=== PATIENT | female | born 1955 | race Caucasian/White ===

== ENCOUNTER 2023-11-11 06:12 | Inpatient (IN) | payer MEDICARE ==
[~2023-11-11] VITALS: Ht 170.2 cm; Wt 69.9 kg
[2023-11-11 07:04] LABS: EOSINOPHILS # (AUTO) 0.6 K/uL (0.0-0.7); EOSINOPHILS % (AUTO) 8.2 % (0.0-6.0); HEMATOCRIT 43 % (33-45); LYMPHOCYTES # (AUTO) 0.6 K/uL (0.8-4.8); LYMPHOCYTES % (AUTO) 8.2 % (20.0-44.0); MEAN CORPUSCULAR HEMOGLOBIN 27 PG (26.0-33.0); MEAN CORPUSCULAR HGB CONC 32 g/dl (31.0-36.0); MEAN CORPUSCULAR VOLUME 84 fL (82-100); MONOCYTES # (AUTO) 0.1 K/uL (0.1-1.30); MONOCYTES % (AUTO) 1.1 % (2.0-12.0); NEUTROPHILS # (AUTO) 6.3 K/uL (1.8-8.9); NEUTROPHILS % (AUTO) 82.5 % (43.0-81.0); PLATELET COUNT (AUTO) 199 K/uL (150-450); WHITE BLOOD COUNT (AUTO) 7.6 K/uL (4.3-11.0)
[2023-11-11] MEDS ORDERED: LIDOCAINE 2%-EPI 1:200,000 20 ML VIAL IJ ONE (07:10)
[2023-11-11] MEDS ORDERED: VANCOMYCIN 1 GM VIAL ONE (07:10)
[2023-11-11] MEDS ORDERED: dexaMETHasone SOD PHOSPHATE 4 MG/ML VIAL ONE (07:10)
[2023-11-11 07:11] LABS: INR 1.01 (0.91-1.10); PARTIAL THROMBOPLASTIN TIME 27.6 SEC (24.3-34.3); PROTHROMBIN TIME 10.7 SECS (9.2-11.1)
[2023-11-11] MEDS ORDERED: dexaMETHasone SOD PHOSPHATE 1 ML ONE (07:12)
[2023-11-11] MEDS ORDERED: OXYMETAZOLINE HCL NASAL SPRAY 30 ML BOTTLE NS ONE (07:46)
[2023-11-11] MEDS ORDERED: ROCURONIUM BROMIDE 50 MG/5 ML ONE (08:01)
[2023-11-11] MEDS ORDERED: KETAMINE HCL (500MG/10ML) 50 MG/ML VIAL ONE (08:01)
[2023-11-11] MEDS ORDERED: FENTANYL PF 100MCG/2ML AMPUL ONE (08:01)
[2023-11-11] MEDS ORDERED: MIDAZOLAM HCL 2 MG/2ML VIAL ONE (08:01)
[2023-11-11] MEDS ORDERED: FAMOTIDINE/PF INJ 20 MG/2 ML VIAL IV ONE (08:01)
[2023-11-11] MEDS: HYDROMORPHONE 1 MG/1 ML DISP.SYRIN IV PRN (12:23)
[2023-11-11] MEDS: IV NS 0.9% 1,000 ML IV PRN (12:30)
[2023-11-11] MEDS ORDERED: ONDANSETRON HCL/PF 4 MG/2 ML VIAL IVP PRN (12:30)
[2023-11-11] MEDS ORDERED: ACETAMINOPHEN 325 MG TABLET PO PRN ×2 (12:30→14:30)
[2023-11-11] MEDS ORDERED: Z GUARD REMEDY 4 OZ OINT TP PRN (14:30)
[2023-11-11 16:00] VITALS: BP 125/84; TEMP 97.3; O2SAT 98
[2023-11-11] MEDS: MENTHOL/CETYLPYRD (CEPACOL) 1 LOZ LOZENGE PO PRN (16:00)
[2023-11-11 20:00] VITALS: BP 106/78; TEMP 97.5; O2SAT 96
[2023-11-11] MEDS: VANCOMYCIN 1 GM in IV D5W 250ml IV SCH (20:01)
[2023-11-11] MEDS: EZETIMIBE 10 MG TABLET PO SCH (21:02)
[2023-11-12 07:35] LABS: BASOPHILS % (AUTO) 0.4 % (0.0-2.0); EOSINOPHILS % (AUTO) 0.3 % (0.0-6.0); HEMATOCRIT 37 % (33-45); HEMOGLOBIN 12.2 g/dL (11.5-14.8); LYMPHOCYTES # (AUTO) 2.5 K/uL (0.8-4.8); MEAN CORPUSCULAR HEMOGLOBIN 28 PG (26.0-33.0); MEAN CORPUSCULAR HGB CONC 33 g/dl (31.0-36.0); MEAN CORPUSCULAR VOLUME 83 fL (82-100); MONOCYTES # (AUTO) 1.2 K/uL (0.1-1.30); MONOCYTES % (AUTO) 10.5 % (2.0-12.0); NEUTROPHILS # (AUTO) 7.5 K/uL (1.8-8.9); NEUTROPHILS % (AUTO) 66.8 % (43.0-81.0); PLATELET COUNT (AUTO) 179 K/uL (150-450); RED BLOOD CELL COUNT(AUTO) 4.41 MIL/uL (4.0-5.2); RED CELL DISTRIBUTION WIDTH 13.4 % (11.5-15.0); WHITE BLOOD COUNT (AUTO) 11.3 K/uL (4.3-11.0)
[2023-11-12 07:56] LABS: CALCIUM, SERUM 8.8 mg/dL (8.5-10.1); CREATININE 0.5 mg/dL (0.6-1.3); MAGNESIUM 1.9 mg/dL (1.8-2.4); PHOSPHORUS 3.1 mg/dL (2.5-4.9); POTASSIUM 3.6 mmol/L (3.5-5.1)
[2023-11-12 08:00] VITALS: BP 91/76; TEMP 98.1; O2SAT 96
[2023-11-12 09:00] VITALS: BP 91/76
[2023-11-12] MEDS: VALSARTAN 80 MG TABLET PO SCH (09:00)
[2023-11-12] MEDS ORDERED: LIDO20SO13 PO (10:19)
[2023-11-12] MEDS: LIDOCAINE VISCOUS 2% UD 15 ML UDC MM ONE (10:47)
== END 2023-11-12 16:16 | disposition home or self-care (01) | DRG 517 ==
LOC: DS 06:12 → MED 11:40
PROVIDERS: ADMIT Nurse Practitioner Family; ATTEND Nurse Practitioner Family
PROC: 0NBT0ZX Excision of Right Mandible, Open Approach, Diagnostic (ICD-10-PCS; principal; 2023-11-11)
PROC: 0NBV0ZZ Excision of Left Mandible, Open Approach (ICD-10-PCS; 2023-11-11)
PROC: 0NSR04Z Reposition Maxilla with Internal Fixation Device, Open Approach (ICD-10-PCS; 2023-11-11)
PROC: 0NUT07Z Supplement Right Mandible with Autologous Tissue Substitute, Open Approach (ICD-10-PCS; 2023-11-11)
PROC: 0NUV07Z Supplement Left Mandible with Autologous Tissue Substitute, Open Approach (ICD-10-PCS; 2023-11-11)
PROC: 0NUR07Z Supplement Maxilla with Autologous Tissue Substitute, Open Approach (ICD-10-PCS; 2023-11-11)
PROC: 0NST04Z Reposition Right Mandible with Internal Fixation Device, Open Approach (ICD-10-PCS; 2023-11-11)
PROC: 0WB30ZX Excision of Oral Cavity and Throat, Open Approach, Diagnostic (ICD-10-PCS; 2023-11-11)
PROC: 0NSV0ZZ Reposition Left Mandible, Open Approach (ICD-10-PCS; 2023-11-11)
PROC: 0WC50ZZ Extirpation of Matter from Lower Jaw, Open Approach (ICD-10-PCS; 2023-11-11)
PROC: 0NBR0ZX Excision of Maxilla, Open Approach, Diagnostic (ICD-10-PCS; 2023-11-11)
DX: S02.40CK Maxillary fracture, right side, subsequent encounter for fracture with nonunion (principal); J32.0 Chronic maxillary sinusitis; S02.40DK Maxillary fracture, left side, subsequent encounter for fracture with nonunion; S02.609K Fracture of mandible, unspecified, subsequent encounter for fracture with nonunion; M27.2 Inflammatory conditions of jaws; M27.40 Unspecified cyst of jaw; E78.5 Hyperlipidemia, unspecified; I10 Essential (primary) hypertension; R04.0 Epistaxis; X58.XXXA Exposure to other specified factors, initial encounter; Y92.9 Unspecified place or not applicable
CPT/HCPCS: 36415; 71045-TC; 80048-TC; 83735-TC; 84100-TC; 85025-TC; 85610-TC; 85730-TC; 88305-TC; 88311-TC; A4223; C1713; G0378; J1100; J1170; J2250; J2405; J2704; J2765; J3010; J3370; J3490; J7030; J7060

== ENCOUNTER 2024-03-05 06:26 | Inpatient (IN) | payer MEDICARE, OTHER ==
[~2024-03-05] VITALS: Ht 160 cm; Wt 66.2 kg
[~2024-03-05 06:26] MED LIST: LIDO20SO13 PO
[2024-03-05] MEDS ORDERED: LIDOCAINE 1%-EPI 1:100,000 20 ML VIAL ONE (06:40)
[2024-03-05] MEDS ORDERED: dexaMETHasone SOD PHOSPHATE 2 ML ONE (06:41)
[2024-03-05] MEDS ORDERED: VANCOMYCIN 1 GM VIAL ONE (06:48)
[2024-03-05] MEDS ORDERED: LIDOCAINE 2%-EPI 1:100,000 30 ML VIAL ONE (06:48)
[2024-03-05] MEDS ORDERED: OXYMETAZOLINE HCL NASAL SPRAY 30 ML BOTTLE NS ONE (07:16)
[2024-03-05] MEDS ORDERED: FENTANYL PF 100MCG/2ML AMPUL ONE (07:22)
[2024-03-05] MEDS ORDERED: Magnesium 1 GM/2 ML VIAL ONE (07:23)
[2024-03-05] MEDS ORDERED: FAMOTIDINE/PF INJ 20 MG/2 ML VIAL IV ONE (07:23)
[2024-03-05] MEDS ORDERED: ROCURONIUM BROMIDE 50 MG/5 ML ONE (07:23)
[2024-03-05] MEDS ORDERED: ONDANSETRON HCL/PF 4 MG/2 ML VIAL IVP PRN (10:30)
[2024-03-05] MEDS: IV NS 0.9% 1,000 ML IV PRN (12:58)
[2024-03-05] MEDS: HYDROMORPHONE 1 MG/1 ML DISP.SYRIN IV PRN (13:14)
[2024-03-05] MEDS: VANCOMYCIN 1 GM in IV D5W 250ml IV SCH (20:01)
[2024-03-05 21:00] VITALS: BP 104/70; TEMP 94.9; O2SAT 96
[2024-03-05] MEDS: ACETAMINOPHEN 325 MG TABLET PO PRN (22:57)
[2024-03-06 08:00] VITALS: BP 108/82; TEMP 98.2; O2SAT 98
== END 2024-03-06 12:00 | disposition home or self-care (01) | DRG 908 ==
LOC: DS 06:26 → MED 10:01
PROVIDERS: ADMIT Nurse Practitioner Acute Care; ATTEND Nurse Practitioner Acute Care
PROC: 0NPW04Z Removal of Internal Fixation Device from Facial Bone, Open Approach (ICD-10-PCS; principal; 2024-03-05)
PROC: 0NPW07Z Removal of Autologous Tissue Substitute from Facial Bone, Open Approach (ICD-10-PCS; 2024-03-05)
PROC: 0NHR04Z Insertion of Internal Fixation Device into Maxilla, Open Approach (ICD-10-PCS; 2024-03-05)
PROC: 0NBT0ZZ Excision of Right Mandible, Open Approach (ICD-10-PCS; 2024-03-05)
PROC: 0NBR0ZX Excision of Maxilla, Open Approach, Diagnostic (ICD-10-PCS; 2024-03-05)
DX: T86.831 Bone graft failure (principal); S02.40CK Maxillary fracture, right side, subsequent encounter for fracture with nonunion; T84.69XA Infection and inflammatory reaction due to internal fixation device of other site, initial encounter; S02.40DK Maxillary fracture, left side, subsequent encounter for fracture with nonunion; M27.2 Inflammatory conditions of jaws; Y83.8 Other surgical procedures as the cause of abnormal reaction of the patient, or of later complication, without mention of misadventure at the time of the procedure; E78.5 Hyperlipidemia, unspecified; F17.210 Nicotine dependence, cigarettes, uncomplicated; I10 Essential (primary) hypertension; Y92.009 Unspecified place in unspecified non-institutional (private) residence as the place of occurrence of the external cause; D16.4 Benign neoplasm of bones of skull and face; X58.XXXD Exposure to other specified factors, subsequent encounter; Y83.2 Surgical operation with anastomosis, bypass or graft as the cause of abnormal reaction of the patient, or of later complication, without mention of misadventure at the time of the procedure; K13.79 Other lesions of oral mucosa
CPT/HCPCS: A4223; C1713; G0378; J1100; J1170; J2405; J2704; J2765; J3010; J3370; J3475; J3490; J7030; J7060